=== PATIENT | male | born 1995 | race Caucasian/White ===

== ENCOUNTER 2018-05-15 23:30 | Emergency (ER) | payer MEDICAID, OTHER ==
[2018-05-16] MEDS ORDERED: ULTRAM 50 MG PO ONE ×2 (00:06→00:49)
[2018-05-16] MEDS ORDERED: Augmentin 875-125 Tablet PO ONE (00:06)
[2018-05-16] MEDS ORDERED: Augmentin 875-125 Tablet ONE (00:10)
[2018-05-16] MEDS ORDERED: ULTRAM 50 MG ONE ×2 (00:10→00:50)
--- NOTE | 2018-05-16 00:13 | ERPHSYRPT ---
- History of Present Illness Time Seen by Provider: 05/15/18 23:59 Source: patient Exam Limitations: clinical condition Patient Subjective Stated Complaint: pt states he has a toothache to rt lower jaw that started yesterday Triage Nursing Assessment: pt alert and oriented, asnwers questions approp. pt ambulatory with steady gait noted, respirations nonlabored with lungs cta. skin pink warm and dry. dental caries noted to teeth to rt lower jaw. swelling to rt lower jaw. Physician History: PATIENT COMPLAINS OF RIGHT LOWER TOOTHACHE ASSOCIATED WITH JAW SWELLING THROUGHOUT THE DAY. HE DENIES DIFFICULTY BREATHNG OR SWALLOWING, FEVER OR CHILLS Timing/Duration: gradual onset Severity: severe ENT Location: facial, dental Prearrival Treatment: no prearrival treatment (TOOK [facility] EARLIER TODAY) Associated Symptoms: facial pain/swelling, jaw pain Allergies/Adverse Reactions: ceftriaxone sodium [From Rocephin] Allergy (Mild, Verified 05/13/15 18:55) Home Medications: Cyclobenzaprine HCl 10 mg [Flexeril 10 MG] 10 mg PO Q6-8HPRN PRN 03/22/15 [History] Naproxen 500 mg [Naprosyn 500 MG] 500 mg PO [id number] PRN 03/22/15 [History] Hx Tetanus, Diphtheria Vaccination/Date Given: Yes Hx Influenza Vaccination/Date Given: No Hx Pneumococcal Vaccination/Date Given: No Immunizations Up to Date: Yes - Review of Systems Constitutional: No Symptoms Ears, Nose, & Throat: Mouth Swelling Respiratory: No Symptoms Cardiac: No Symptoms Abdominal/Gastrointestinal: No Symptoms Neurological: No Symptoms - Past Medical History Pertinent Past Medical History: Yes Neurological History: No Pertinent History ENT History: No Pertinent History Cardiac History: No Pertinent History Respiratory History: No Pertinent History Endocrine Medical History: No Pertinent History Musculoskeletal History: No Pertinent History GI Medical History: GERD History: No Pertinent History Psycho-Social History: Anxiety, Attention Deficit Disorder, Depression, Other Male Reproductive Disorders: No Pertinent History Other Medical History: PTSD - Past Surgical History Past Surgical History: Yes Neuro Surgical History: No Pertinent History Cardiac: No Pertinent History Respiratory: No Pertinent History Gastrointestinal: No Pertinent History Genitourinary: No Pertinent History Musculoskeletal: No Pertinent History Male Surgical History: No Pertinent History Other Surgical History: TONSILS - Social History Smoking Status: Former smoker How long have you smoked: 5 Exposure to second hand smoke: Yes Drug Use: none Patient Lives Alone: No Significant Family History: no pertinent family hx - Nursing Vital Signs Nursing Vital Signs: Initial Vital Signs Temperature 98.2 F 05/15/18 23:55 Pulse Rate 79 05/15/18 23:55 Respiratory Rate 16 05/15/18 23:55 Blood Pressure 114/77 05/15/18 23:55 O2 Sat by Pulse Oximetry 98 05/15/18 23:55 Pain Scale Pain Intensity 8 - Physical Exam General Appearance: no apparent distress, alert Eye Exam: bilateral eye: PERRL, EOMI Ear Exam: bilateral ear: auricle normal, canal normal Nasal Exam: normal inspection Throat Exam: pharynx normal, dental tenderness (RIGHT MANDIBLE SWELLING AT ANGLE , WIDESPREAD DENTAL CARIES), moist mucus membranes, No tonsillar exudate Neck Exam: supple Cardiovascular/Respiratory Exam: normal breath sounds, regular rate/rhythm Abdominal Exam: non-tender, soft Neurologic Exam: alert, oriented x 3, sensation nml, No motor deficits Skin Exam: normal color, warm, dry SpO2 Interpretation: normal SpO2: 98 Oxygen Delivery: Room Air Ordered Tests: Medication Summary Discontinued Medications Generic Name Dose Route Start Last Admin Trade Name Freq PRN Reason Stop Dose Admin Amoxicillin/Clavulanate Potassium 875 mg 05/16/18 00:06 Augmentin 875-125 Tablet PO 05/16/18 00:07 STAT ONE Tramadol HCl 50 mg 05/16/18 00:06 Ultram 50 Mg PO 05/16/18 00:07 STAT ONE - Progress Progress Note: 05/16/18 00:14 ADMINISTERED ULTRAM 50MG, AUGMENTIN 875MG ORALLY Counseled pt/family regarding: diagnosis, need for follow-up - Departure Time of Disposition: 00:45 Departure Disposition: Home Clinical Impression: DENTAL CARIES, ALVEOLAR ABSCESS Condition: Stable Critical Care Time: No Referrals: GABY CAMP [Primary Care Provider] - Additional Instructions: ANTIBIOTIC AUGMENTIN 875MG TWICE DAILY FOR 10 DAYS. ULTRAM 50MG EVERY 6 HOURS NEEDED. CONSULT YOUR DENTIST FOR FOLLOWUP IN 1 WEEK. Prescriptions: Amox Tr/Potass Clav. 875 mg [Augmentin 875-125 Tablet] 875 mg PO BID #20 tablet Amox Tr/Potass Clav. 875 mg [Augmentin 875-125 Tablet] 875 mg PO STAT #20 tablet Tramadol HCl 50 mg [Ultram 50 mg] 50 mg PO Q4-6HPRN PRN #12 tablet PRN Reason: Pain
[2018-05-16 00:46] VITALS: BP 112/68; PULSE 73; O2SAT 97
== END 2018-05-16 00:52 | disposition home or self-care (01) ==
LOC: ED 23:30
DX: K02.9 Dental caries, unspecified (principal); K04.7 Periapical abscess without sinus
CPT/HCPCS: 99283; A9270-GY

== ENCOUNTER 2018-05-16 22:38 | Emergency (ER) | payer OTHER ==
[2018-05-16 22:52] VITALS: BP 130/77; PULSE 86; O2SAT 97
[2018-05-16] MEDS ORDERED: Sodium Chloride 0.9% 1000 ML 1,000 ML IV STA (23:06)
[2018-05-16] MEDS ORDERED: Pepcid 20 MG PO ONE (23:06)
[2018-05-16] MEDS ORDERED: solu-MEDROL 125 MG IV ONE (23:06)
[2018-05-16] MEDS ORDERED: BENADRYL 50 MG/ML IV ONE (23:06)
--- NOTE | 2018-05-16 23:12 | ERPHSYRPT ---
- History of Present Illness Time Seen by Provider: 05/16/18 22:59 Source: patient Exam Limitations: no limitations Patient Subjective Stated Complaint: Pt arrives to ER with c/o allergic reaction to what pt believes is Ultram stating was here last night for abscessed tooth, was given Augmentin here in ER last night and sent home with Ultram. Pt has not yet filled prescription for abx but states was given take home Ultram. pt took another dose of Ultram and states believes that is the cause of his hives on his buttocks and burning in back of throat down esophagus. Denies difficulty swallowing or breathing at this time. Also mentions swelling to jaw from abscess. Triage Nursing Assessment: see above Physician History: Pt was seen here last night with dental abscess, and given Amoxicillin and Ultram. He took it today and believes he developed allergic reaction to Ultram , since he never took them, and he took Amoxicillin multiple times. He developed hives on his back, denies fever, difficulty swallowing, throat swelling, vomiting, wheezing, other complaints. He talks in sentences, no muffled voice or drooling. Timing/Duration: today Severity: mild Modifying Factors: Improves With: nothing Associated Symptoms: denies symptoms Allergies/Adverse Reactions: ceftriaxone sodium [From Rocephin] Allergy (Mild, Verified 05/13/15 18:55) tramadol [From Ultram] Allergy (Verified 05/16/18 22:52) Hives Home Medications: Cyclobenzaprine HCl 10 mg [Flexeril 10 MG] 10 mg PO Q6-8HPRN PRN 03/22/15 [History] Naproxen 500 mg [Naprosyn 500 MG] 500 mg PO [id number] PRN 03/22/15 [History] Hx Tetanus, Diphtheria Vaccination/Date Given: Yes Hx Influenza Vaccination/Date Given: No Hx Pneumococcal Vaccination/Date Given: No Immunizations Up to Date: No - Review of Systems Constitutional: No Symptoms Skin: Pruritis, Other (hives) All Other Systems: Reviewed and Negative - Past Medical History Pertinent Past Medical History: Yes Neurological History: No Pertinent History ENT History: No Pertinent History Cardiac History: No Pertinent History Respiratory History: No Pertinent History Endocrine Medical History: No Pertinent History Musculoskeletal History: No Pertinent History GI Medical History: GERD History: No Pertinent History Psycho-Social History: Anxiety, Attention Deficit Disorder, Depression, Other Male Reproductive Disorders: No Pertinent History Other Medical History: PTSD - Past Surgical History Past Surgical History: Yes Neuro Surgical History: No Pertinent History Cardiac: No Pertinent History Respiratory: No Pertinent History Gastrointestinal: No Pertinent History Genitourinary: No Pertinent History Musculoskeletal: No Pertinent History Male Surgical History: No Pertinent History Other Surgical History: TONSILS - Social History Smoking Status: Former smoker How long have you smoked: 5 Exposure to second hand smoke: No Drug Use: none Patient Lives Alone: No Significant Family History: no pertinent family hx - Nursing Vital Signs Nursing Vital Signs: Initial Vital Signs Pulse Rate 86 05/16/18 22:43 Respiratory Rate 18 05/16/18 22:43 Blood Pressure 130/77 05/16/18 22:43 O2 Sat by Pulse Oximetry 97 05/16/18 22:43 Pain Scale Pain Intensity 8 - Physical Exam General Appearance: no apparent distress Eye Exam: eyes nml inspection Ears, Nose, Throat Exam: pharynx normal, moist mucous membranes, other (right lower molars with severe caries, and slight gum swelling, no purulent discharge , or edema, no throat swelling, right mandibular angle is swollen, no skin redness, or changes.), No tonsillar exudate Neck Exam: normal inspection, non-tender, supple, No mass, No JVD, No lymphadenopathy Respiratory Exam: normal breath sounds, lungs clear, airway intact, No chest tenderness, No respiratory distress Cardiovascular Exam: regular rate/rhythm, normal heart sounds, normal peripheral pulses, No murmur Gastrointestinal/Abdomen Exam: soft, normal bowel sounds, No tenderness Back Exam: normal inspection, No CVA tenderness Extremity Exam: normal inspection Neurologic Exam: alert, oriented x 3, normal mood/affect Skin Exam: normal color, warm, dry, rash (few, scattered, small hives on lower back.), No petechiae Lymphatic Exam: No adenopathy SpO2 Interpretation: normal SpO2: 97 Oxygen Delivery: Room Air - Course Nursing assessment & vital signs reviewed: Yes Ordered Tests: Active Orders 24 hr Category Date Time Status IV Insertion STAT Care 05/16/18 23:06 Active Medication Summary Discontinued Medications Generic Name Dose Route Start Last Admin Trade Name Freq PRN Reason Stop Dose Admin Diphenhydramine HCl 25 mg 05/16/18 23:06 05/16/18 23:33 Benadryl 50 Mg/Ml IV 05/16/18 23:07 25 mg STAT ONE Administration Diphenhydramine HCl Confirm 05/16/18 23:27 Benadryl 50 Mg/Ml Administered 05/16/18 23:28 Dose 50 mg .ROUTE .STK-MED ONE Famotidine 20 mg 05/16/18 23:06 05/16/18 23:33 Pepcid 20 Mg PO 05/16/18 23:07 20 mg STAT ONE Administration Famotidine Confirm 05/16/18 23:27 Pepcid 20 Mg Administered 05/16/18 23:28 Dose 20 mg .ROUTE .STK-MED ONE Sodium Chloride 1,000 mls @ 999 mls/hr 05/16/18 23:06 05/16/18 23:33 Sodium Chloride 0.9% 1000 Ml IV 05/17/18 00:06 999 mls/hr .Q1H1M STA Administration Sodium Chloride Confirm 05/16/18 23:27 Sodium Chloride 0.9% 1000 Ml Administered 05/16/18 23:28 Dose 1,000 mls @ ud .ROUTE .STK-MED ONE Methylprednisolone Sodium Succinate 125 mg 05/16/18 23:06 05/16/18 23:33 Solu-Medrol 125 Mg IV 05/16/18 23:07 125 mg STAT ONE Administration Methylprednisolone Sodium Succinate Confirm 05/16/18 23:27 Solu-Medrol 125 Mg Administered 05/16/18 23:28 Dose 125 mg .ROUTE .STK-MED ONE - Progress Progress: improved Progress Note: 05/17/18 00:05 Pt states, improved after iv fluids, and steroid, no difficulty breathing, wheezing, pain free, and stable. I suggested to stop taking Ultram, I replaced with [place] 5/325 mg PO Q6h PRN # 10 given, also to return if continued hives, throat swelling, difficulty breathing, otherwise follow with a dentist in 2-3 days! Counseled pt/family regarding: diagnosis, need for follow-up - Departure Time of Disposition: 00:06 Departure Disposition: Home Clinical Impression: Dental abscess Allergic reaction caused by a drug Qualifiers: Encounter type: initial encounter Qualified Code(s): T78.40XA - Allergy, unspecified, initial encounter Condition: Stable Critical Care Time: No Referrals: GABY CAMP [Primary Care Provider] - Instructions: Tooth Abscess (DC), Adverse Drug Reactions, Adult (DC) Additional Instructions: Follow up with dentist! Continue Amoxicillin as directed, but stop if recurrent hives, severe swelling, or difficulty breathing, and return to ER! Prescriptions: Methylprednisolone Packet [Medrol Dosepack] 0 mg PO UD #1 packet
[2018-05-16] MEDS ORDERED: Sodium Chloride 0.9% 1000 ML 1,000 ML ONE (23:27)
[2018-05-16] MEDS ORDERED: solu-MEDROL 125 MG ONE (23:27)
[2018-05-16] MEDS ORDERED: Pepcid 20 MG ONE (23:27)
[2018-05-16] MEDS ORDERED: BENADRYL 50 MG/ML ONE (23:27)
== END 2018-05-17 00:30 | disposition home or self-care (01) ==
LOC: ED 22:38
DX: L27.0 Generalized skin eruption due to drugs and medicaments taken internally (principal); T40.4X5A Adverse effect of other synthetic narcotics, initial encounter; K04.7 Periapical abscess without sinus; Z79.899 Other long term (current) drug therapy
CPT/HCPCS: 36000; 96360; 96374; 96375; 99284; J1200; J2930; A9270-GY

== ENCOUNTER 2019-05-16 21:22 | Emergency (ER) | payer MEDICAID, OTHER ==
[2019-05-16] MEDS ORDERED: solu-MEDROL 125 MG IM ONE (21:37)
[2019-05-16 21:42] VITALS: O2SAT 94
--- NOTE | 2019-05-16 21:43 | ERPHSYRPT ---
- History of Present Illness Time Seen by Provider: 05/16/19 21:32 Source: patient Exam Limitations: no limitations Physician History: Pt started c/o rash, itching on both hands, forearms and spreading to his chest about one week ago, after pulling some weeds. He denies difficulty breathing, throat swelling, nausea, vomiting, dizziness, or other complaints, he has been using Benadryl, and rubbing alcohol to his skin. Timing/Duration: week(s) (1) Quality: burning, itchy Severity: moderate Location: hands, extremities Possible Causes: poison [place]essa Modifying Factors: Improves With: antihistamine Associated Symptoms: rash Allergies/Adverse Reactions: ceftriaxone sodium [From Rocephin] Allergy (Mild, Verified 05/13/15 18:55) tramadol [From Ultram] Allergy (Verified 05/16/18 22:52) Hives Home Medications: No Reportable Medications [No Reported Medications] 05/16/19 [History] Hx Tetanus, Diphtheria Vaccination/Date Given: Yes Hx Influenza Vaccination/Date Given: No Hx Pneumococcal Vaccination/Date Given: No - Review of Systems Constitutional: No Symptoms Eyes: No Symptoms Ears, Nose, & Throat: No Symptoms Respiratory: No Symptoms Cardiac: No Symptoms Abdominal/Gastrointestinal: No Symptoms Genitourinary Symptoms: No Symptoms Musculoskeletal: No Symptoms Skin: Pruritis, Rash Neurological: No Symptoms All Other Systems: Reviewed and Negative - Past Medical History Pertinent Past Medical History: Yes Neurological History: No Pertinent History ENT History: No Pertinent History Cardiac History: No Pertinent History Respiratory History: No Pertinent History Endocrine Medical History: No Pertinent History Musculoskeletal History: No Pertinent History GI Medical History: GERD History: No Pertinent History Psycho-Social History: Anxiety, Attention Deficit Disorder, Depression, Other Male Reproductive Disorders: No Pertinent History Other Medical History: PTSD - Past Surgical History Past Surgical History: Yes Neuro Surgical History: No Pertinent History Cardiac: No Pertinent History Respiratory: No Pertinent History Gastrointestinal: No Pertinent History Genitourinary: No Pertinent History Musculoskeletal: No Pertinent History Male Surgical History: No Pertinent History Other Surgical History: TONSILS - Social History Smoking Status: Former smoker How long have you smoked: 5 Exposure to second hand smoke: No Drug Use: none Patient Lives Alone: No Significant Family History: no pertinent family hx - Physical Exam General Appearance: no apparent distress Eye Exam: eyes nml inspection Ears, Nose, Throat Exam: normal ENT inspection, pharynx normal, moist mucous membranes Neck Exam: normal inspection, non-tender Respiratory Exam: normal breath sounds, lungs clear, airway intact, No wheezing Cardiovascular Exam: regular rate/rhythm, normal heart sounds, normal peripheral pulses, No murmur Gastrointestinal/Abdomen Exam: soft, normal bowel sounds, No tenderness Back Exam: normal inspection Extremity Exam: normal inspection Neurologic Exam: alert, oriented x 3, normal mood/affect Skin Exam: normal color, warm, dry, rash, other (diffuse, erythematous macular papular exanthems on both forearms, and similar scattered lesions on the left sode of the abdomen and chest, no hives, blisters, or other lesions.), No petechiae, No jaundice, No cyanosis, No diaphoresis Lymphatic Exam: No adenopathy SpO2 Interpretation: normal O2 Delivery: Room Air - Course Nursing assessment & vital signs reviewed: Yes Ordered Tests: Medication Summary Discontinued Medications Generic Name Dose Route Start Last Admin Trade Name Freq PRN Reason Stop Dose Admin Methylprednisolone Sodium Succinate 125 mg 05/16/19 21:37 Solu-Medrol 125 Mg IM 05/16/19 21:38 STAT ONE - Progress Progress: improved Progress Note: 05/16/19 21:42 Pt was given 125 mg Solumedrol IM, instructions given for treatment with topicals, and stay indoors, replace PO fluids, and follow up with his physician in 2-3 days. Counseled pt/family regarding: diagnosis, need for follow-up - Departure Departure Disposition: Home Clinical Impression: Poison nessa dermatitis Condition: Stable Critical Care Time: No Referrals: GABY CAMP [Primary Care Provider] - Instructions: Poison [place], Poison [place], Poison [place] (DC) Additional Instructions: Rest x 2-3 days, drink plenty of fluids, and use topicals (Calamine, Benadryl etc to rash), follow up with your physician in 2-3 days, return if severe swelling, difficulty breathing, vomiting, severe dizziness! Prescriptions: Methylprednisolone Packet [Medrol Dosepack] 4 mg PO UD #1 packet
[2019-05-16 21:46] VITALS: BP 128/81; PULSE 72
[2019-05-16] MEDS ORDERED: solu-MEDROL 125 MG ONE (21:49)
== END 2019-05-16 21:50 | disposition home or self-care (01) ==
LOC: ED 21:22
DX: L23.7 Allergic contact dermatitis due to plants, except food (principal)
CPT/HCPCS: 96372; 99283; J2930

== ENCOUNTER 2020-09-07 18:33 | Emergency (ER) | payer SELFPAY ==
[2020-09-07] MEDS ORDERED: BENADRYL 50 MG/ML IV ONE (18:49)
[2020-09-07] MEDS ORDERED: Sodium Chloride 0.9% 1000 ML 1,000 ML IV STA (18:49)
[2020-09-07] MEDS ORDERED: SUBLIMAZE 100 MCG/2 ML IV ONE ×2 (18:49→19:37)
[2020-09-07] MEDS ORDERED: Zofran 4 MG/2 ML VIAL IV ONE (18:49)
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
[2020-09-07] MEDS ORDERED: Zofran 4 MG/2 ML VIAL ONE (19:03)
[2020-09-07] MEDS ORDERED: BENADRYL 50 MG/ML ONE (19:03)
[2020-09-07] MEDS ORDERED: Sodium Chloride 0.9% 1000 ML 1,000 ML ONE (19:04)
[2020-09-07] MEDS ORDERED: SUBLIMAZE 100 MCG/2 ML ONE ×2 (19:04→19:49)
[2020-09-07 19:10] LABS: Absolute Neutrophil Ct (ANC) 6.32 (1.4-6.9); BASOPHIL % 0.1 % (0.0-0.4); Basophil (Absolute #) 0.01 (0-0.4); Eosinophil % 0.7 % (0.00-5.0); Eosinophil (Absolute #) 0.06 (0-0.5); Hematocrit 43.4 % (42-50); Hemoglobin 14.6 gm/dl (12.5-18.0); Lymphocyte (Absolute #) 1.48 (1.0-4.6); Lymphocytes % 17.6 % (24.0-44.0); Mean Cell Volume 92.7 fl (78-100); Mean Corpuscular Hemoglobin 31.2 pg (26-32); Mean Corpuscular Hgb Concent. 33.6 g/dl (32-36); Mean Platelet Volume 10.7 fl (7.5-11.0); Monocyte (Absolute #) 0.54 (0.0-1.3); Monocytes % 6.4 % (0.0-12.0); Neutrophil % 75.2 % (36.0-66.0); Platelet Count 185 K/mm3 (150-450); Red Blood Count 4.68 M/mm3 (4.1-5.6); Red Cell Distribution Width 12.7 % (11.5-14.0); White Blood Count 8.4 K/mm3 (4.0-10.5)
[2020-09-07 19:22] LABS: ALBUMIN 4.6 g/dL (3.5-5.0); ALKALINE PHOSPHATASE 49 U/L (38-126); ANION GAP 11.1 MEQ/L (5-15); BLOOD UREA NITROGEN 9 mg/dL (9-20); CHLORIDE 107 mmol/L (98-107); Calcium 9.4 mg/dL (8.4-10.2); Carbon Dioxide 25 mmol/L (22-30); EST GLOMERULAR FILTRATION RATE > 60.0 ML/MIN; Glucose 149 mg/dL (74-106); Potassium 3.4 mmol/L (3.5-5.1); SGOT/AST 21 U/L (17-59); SGPT/ALT 15 U/L (0-50); SODIUM 140 mmol/L (137-145); Total Protein 6.8 g/dL (6.3-8.2)
[2020-09-07 20:02] VITALS: O2SAT 100
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
[2020-09-07] MEDS ORDERED: Hydromorphone 1 mg/ml Injection IV ONE (20:54)
[2020-09-07] MEDS ORDERED: Hydromorphone 1 mg/ml Injection ONE (20:57)
[2020-09-07 21:04] VITALS: BP 124/70; PULSE 76
[2020-09-07 21:04] LABS: Appearance CLEAR (CLEAR); Bilirubin NEGATIVE (NEGATIVE); Blood NEGATIVE Ery/ul (0-5); Glucose NEGATIVE (NEGATIVE); Ketones TRACE (NEGATIVE); Leukocyte Esterase NEGATIVE (NEGATIVE); Mucus SLIGHT /HPF (NEGATIVE); Nitrite NEGATIVE (NEGATIVE); Protein,Urine Dip NEGATIVE (Negative); Specific Gravity 1.025 (1.005-1.025); Urobilinogen 2 mg/dL (0-1)
== END 2020-09-07 21:15 | disposition short-term general hospital (02) ==
LOC: ED 18:33
DX: S82.145A Nondisplaced bicondylar fracture of left tibia, initial encounter for closed fracture (principal); V86.56XA Driver of dirt bike or motor/cross bike injured in nontraffic accident, initial encounter
CPT/HCPCS: 36000; 36415; 73552; 73590; 80053; 81001; 83605; 85025; 96360; 96374; 96375; 96376; 99285; J1170; J1200; J2405; J3010

== ENCOUNTER 2021-04-13 17:59 | Emergency (ER) | payer OTHER ==
[2021-04-13 18:16] VITALS: O2SAT 98
[2021-04-13] MEDS ORDERED: solu-MEDROL 125 MG IM ONE (18:23)
[2021-04-13] MEDS ORDERED: solu-MEDROL 125 MG ONE (18:27)
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
[2021-04-13 18:35] VITALS: BP 138/85; PULSE 76
== END 2021-04-13 18:40 | disposition home or self-care (01) ==
LOC: ED 17:59
DX: L25.9 Unspecified contact dermatitis, unspecified cause (principal)
CPT/HCPCS: 96372; 99283; J2930

== ENCOUNTER 2021-06-22 21:42 | Emergency (ER) | payer OTHER ==
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
[2021-06-23 00:02] VITALS: BP 113/70; PULSE 56; O2SAT 96
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
== END 2021-06-23 00:06 | disposition home or self-care (01) ==
LOC: ED 21:42
DX: S00.83XA Contusion of other part of head, initial encounter (principal); S06.0X0A Concussion without loss of consciousness, initial encounter; W51.XXXA Accidental striking against or bumped into by another person, initial encounter; Y93.89 Activity, other specified; Y92.89 Other specified places as the place of occurrence of the external cause; R51.9 Headache, unspecified
CPT/HCPCS: 70450; 70486; 72125; 99283

== ENCOUNTER 2021-11-28 16:59 | Emergency (ER) | payer OTHER ==
[2021-11-28] MEDS ORDERED: Zithromax 250 MG TABLET PO ONE (18:05)
[2021-11-28] MEDS ORDERED: GARAMYCIN INJ IM ONE (18:05)
[2021-11-28] MEDS ORDERED: Vibramycin 100 MG PO ONE (18:06)
--- NOTE | 2021-11-28 18:24 | ERPHSYRPT ---
- History of Present Illness Time Seen by Provider: 11/28/21 17:16 Source: patient Exam Limitations: no limitations Patient Subjective Stated Complaint: Pt states that he had been with someone that had tested positive for chlamydia and he has been having pain after masterb ating and after urinating Triage Nursing Assessment: Pt was brought to the ER by himself, man parikh, denies pain at this time, does not have a sexual partner at this time, last time was a month ago with the positive chlamydia test, states that he has discharge coming from his penis, pain that continues throughout the day after masterbation Physician History: 26 years old with history of STDs in the past, was involved in unprotected sex almost a month ago and partner tested positive for chlamydia and now he is having some clear to yellow penile discharge and also complaining of testicular pain after masturbating. Denies any testicular swelling. Timing/Duration: week(s), gradual onset, worse Activites at Onset: other Quality: burning Pain Radiation: urethral, scrotal Severity of Pain-Max: moderate Severity of Pain-Current: none Modifying Factors: Improves With: other Associated Symptoms: denies symptoms Sexual intercourse history: less than 2 months ago Allergies/Adverse Reactions: ceftriaxone sodium [From Rocephin] Allergy (Mild, Verified 11/28/21 17:42) tramadol [From Ultram] Allergy (Verified 11/28/21 17:42) Hives Hx Tetanus, Diphtheria Vaccination/Date Given: Yes Hx Influenza Vaccination/Date Given: No Hx Pneumococcal Vaccination/Date Given: No Travel Risk - International Travel Have you traveled outside of the country in past 3 weeks: No - Coronavirus Screening Are you exhibiting any of the following symptoms?: No Close contact with a COVID-19 positive Pt in past 14-21 Days: No - Vaccine Status Have you recieved a Covid-19 vaccination: No - Past Medical History Pertinent Past Medical History: Yes Neurological History: Migraines, Other ENT History: No Pertinent History Cardiac History: No Pertinent History Respiratory History: No Pertinent History Endocrine Medical History: No Pertinent History Musculoskeletal History: No Pertinent History GI Medical History: GERD History: No Pertinent History Psycho-Social History: Anxiety, Attention Deficit Disorder, Depression, Other Male Reproductive Disorders: No Pertinent History Other Medical History: hx of concussion, ADHD, PTSD - Past Surgical History Past Surgical History: Yes Neuro Surgical History: No Pertinent History Cardiac: No Pertinent History Respiratory: No Pertinent History Gastrointestinal: No Pertinent History Genitourinary: No Pertinent History Musculoskeletal: Orthopedic Surgery Male Surgical History: No Pertinent History Other Surgical History: TONSILS, knee surgery X 2, left leg ortho surgery - Social History Smoking Status: Current every day smoker How long have you smoked: years Exposure to second hand smoke: No Drug Use: none Patient Lives Alone: No Significant Family History: no pertinent family hx - Review of Systems Constitutional: No Symptoms Eyes: No Symptoms Ears, Nose, & Throat: No Symptoms Respiratory: No Symptoms Cardiac: No Symptoms Abdominal/Gastrointestinal: No Symptoms Genitourinary Symptoms: Penile Discharge Musculoskeletal: No Symptoms Skin: No Symptoms Neurological: No Symptoms Psychological: No Symptoms Endocrine: No Symptoms Hematologic/Lymphatic: No Symptoms - Nursing Vital Signs Nursing Vital Signs: Initial Vital Signs Temperature 98.6 F 11/28/21 17:33 Pulse Rate 71 11/28/21 17:33 Blood Pressure 130/88 11/28/21 17:33 O2 Sat by Pulse Oximetry 99 11/28/21 17:33 Pain Scale Pain Intensity 0 - Physical Exam General Appearance: no apparent distress Eye Exam: PERRL/EOMI Neck Exam: normal inspection, full range of motion Respiratory Exam: normal breath sounds, lungs clear Cardiovascular Exam: regular rate/rhythm, normal heart sounds Gastrointestinal/Abdomen Exam: soft, normal bowel sounds, No tenderness Rectal Exam: deferred Back Exam: normal inspection, normal range of motion Extremity Exam: normal inspection, normal range of motion Neurologic Exam: alert, oriented x 3, cooperative Skin Exam: normal color SpO2 Interpretation: normal SpO2: 99 O2 Delivery: Room Air Ordered Tests: Medication Summary Discontinued Medications Generic Name Dose Route Start Last Admin Trade Name Adrian PRN Reason Stop Dose Admin Azithromycin 2,000 mg 11/28/21 18:05 Azithromycin 250 Mg Tablet PO 11/28/21 18:06 STAT ONE Doxycycline Hyclate 100 mg 11/28/21 18:06 Doxycycline Hyclate 100 Mg Tablet PO 11/28/21 18:07 STAT ONE Gentamicin Sulfate 240 mg 11/28/21 18:05 Gentamicin Sulfate 80 Mg/2 Ml Vial IM 11/28/21 18:06 STAT ONE - Progress Progress: unchanged Progress Note: 11/28/21 patient is allergic to Rocephin having anaphylaxis in the past. As per new CDC recommendation given gentamicin to 40 mg IM, Zithromax 2 g p.o. and started on doxycycline. Patient is counseled Counseled pt/family regarding: diagnosis, need for follow-up - Departure Departure Disposition: Home Clinical Impression: STD exposure Condition: Stable Critical Care Time: No Referrals: GABY CAMP [Primary Care Provider] - Follow Up with PCP/3 days Instructions: Chlamydia (DC), Gonorrhea (DC) Additional Instructions: Follow safe sex practices. No sexual activity until your symptoms are improved completely. Follow-up with primary care for reevaluation. Return to ER for any worsening discharge, pain etc. Prescriptions: Doxycycline Hyclate 100 mg [Vibramycin 100 MG] 100 mg PO BID #14 tab
[2021-11-28 18:48] LABS: Appearance CLEAR (CLEAR); Bilirubin NEGATIVE (NEGATIVE); Blood NEGATIVE Ery/ul (0-5); Glucose NEGATIVE (NEGATIVE); Ketones NEGATIVE (NEGATIVE); Leukocyte Esterase NEGATIVE (NEGATIVE); Nitrite NEGATIVE (NEGATIVE); Protein,Urine Dip NEGATIVE (Negative); Specific Gravity 1.024 (1.005-1.025); Urobilinogen NEGATIVE mg/dL (0-1)
[2021-11-28] MEDS ORDERED: Vibramycin 100 MG ONE (18:57)
[2021-11-28] MEDS ORDERED: Zithromax 250 MG TABLET ONE (18:57)
[2021-11-28] MEDS ORDERED: GARAMYCIN INJ ONE ×2 (19:16→19:23)
[2021-11-28 19:39] VITALS: BP 131/82; PULSE 72; O2SAT 97
== END 2021-11-28 19:44 | disposition home or self-care (01) ==
LOC: ED 16:59
DX: Z20.2 Contact with and (suspected) exposure to infections with a predominantly sexual mode of transmission (principal); R36.9 Urethral discharge, unspecified; N50.819 Testicular pain, unspecified; Z72.0 Tobacco use
CPT/HCPCS: 81001; 96372; 99284; J1580; A9270-GY

== ENCOUNTER 2022-01-21 21:22 | Emergency (ER) | payer OTHER ==
--- NOTE | 2022-01-21 21:27 | ERPHSYRPT ---
- History of Present Illness Time Seen by Provider: 01/21/22 21:26 Source: patient Exam Limitations: no limitations Physician History: This is a right-handed 26-year-old male who was at work this evening and bent over to attempt to lift heavy weight approximately 40 pounds but when he went to reach down and pull up he felt sharp shooting pains in his right chest into his right shoulder and right lateral neck. Since then he has had aching in that area but has full range of motion. He did not fall onto his shoulder. Patient states that he can take [place] or hydrocodone type medications without any problems. Occurred: just prior to arrival Method of Injury: other (Lifting) Quality: intermittent, aching Severity of Pain-Max: moderate Severity of Pain-Current: mild (To moderate) Extremities Pain Location: shoulder: right Modifying Factors: Improves With: movement Associated Symptoms: none Allergies/Adverse Reactions: ceftriaxone sodium [From Rocephin] Allergy (Mild, Verified 01/21/22 21:31) tramadol [From Ultram] Allergy (Verified 01/21/22 21:31) Hives Hx Tetanus, Diphtheria Vaccination/Date Given: Yes Hx Influenza Vaccination/Date Given: No Hx Pneumococcal Vaccination/Date Given: No Travel Risk - International Travel Have you traveled outside of the country in past 3 weeks: No - Coronavirus Screening Are you exhibiting any of the following symptoms?: No Close contact with a COVID-19 positive Pt in past 14-21 Days: No - Vaccine Status Have you recieved a Covid-19 vaccination: No - Review of Systems Constitutional: No Symptoms Eyes: No Symptoms Ears, Nose, & Throat: No Symptoms Respiratory: No Symptoms Cardiac: No Symptoms Abdominal/Gastrointestinal: No Symptoms Genitourinary Symptoms: No Symptoms Musculoskeletal: Neck Pain (Right lateral), Other (Right shoulder right chest wall) Neurological: No Symptoms Psychological: No Symptoms Endocrine: No Symptoms Hematologic/Lymphatic: No Symptoms Immunological/Allergic: No Symptoms All Other Systems: Reviewed and Negative - Past Medical History Pertinent Past Medical History: Yes Neurological History: Migraines, Other ENT History: No Pertinent History Cardiac History: No Pertinent History Respiratory History: No Pertinent History Endocrine Medical History: No Pertinent History Musculoskeletal History: No Pertinent History GI Medical History: GERD History: No Pertinent History Psycho-Social History: Anxiety, Attention Deficit Disorder, Depression, Other Male Reproductive Disorders: No Pertinent History Other Medical History: hx of concussion, ADHD, PTSD - Past Surgical History Past Surgical History: Yes Neuro Surgical History: No Pertinent History Cardiac: No Pertinent History Respiratory: No Pertinent History Gastrointestinal: No Pertinent History Genitourinary: No Pertinent History Musculoskeletal: Orthopedic Surgery Male Surgical History: No Pertinent History Other Surgical History: TONSILS, knee surgery X 2, left leg ortho surgery - Social History Smoking Status: Current every day smoker How long have you smoked: years Exposure to second hand smoke: No Drug Use: none Patient Lives Alone: No Significant Family History: no pertinent family hx - Physical Exam General Appearance: no apparent distress, alert, anxiety Eyes, Ears, Nose, Throat Exam: normal ENT inspection, moist mucous membranes Neck Exam: normal inspection, non-tender, supple, full range of motion Cardiovascular/Respiratory Exam: chest non-tender (Right upper lateral), normal breath sounds, no respiratory distress, No rib tenderness, No subcutaneous emphysema Abdominal Exam: non-tender Back Exam: normal inspection, normal range of motion, No CVA tenderness, No vertebral tenderness Shoulder Exam: normal inspection, no evidence of injury, normal ROM, pain (Mild with movement) Elbow/Forearm Exam: normal inspection, non-tender, no evidence of injury, normal ROM Wrist Exam: normal inspection, non-tender, no evidence of injury, normal ROM Hand Exam: normal inspection, non-tender, no evidence of injury, normal ROM Neuro/Tendon Exam: normal sensation, normal motor functions, normal tendon functions, responds to pain, no evidence tendon injury Mental Status Exam: alert, oriented x 3, cooperative Skin Exam: normal color, warm, dry SpO2 Interpretation: normal O2 Delivery: Room Air - Course Nursing assessment & vital signs reviewed: Yes Ordered Tests: Active Orders 24 hr Category Date Time Status UA W/RFX UR CULTURE Stat Lab 01/21/22 21:45 Ordered Medication Summary Discontinued Medications Generic Name Dose Route Start Last Admin Trade Name Freq PRN Reason Stop Dose Admin Hydrocodone Bitart/Acetaminophen 2 tab 01/21/22 21:44 Hydrocodone/Apap 5/325 Mg Tablet PO 01/21/22 21:45 SENT HOME W/ PATIENT ONE Prednisone 20 mg 01/21/22 21:44 Prednisone 20 Mg Tablet PO 01/21/22 21:45 STAT ONE - Progress Progress: pain not gone completely Progress Note: 01/21/22 21:49 Patient suffered no acute fall or trauma to the right shoulder. I am not concerned of any bony fracture or dislocation. Counseled pt/family regarding: diagnosis, need for follow-up - Departure Departure Disposition: Home Clinical Impression: Muscle strain Condition: Stable Critical Care Time: No Referrals: GABY CAMP [Primary Care Provider] - Follow up/PCP as directed Additional Instructions: Ice pack to tender areas 3 times a day for the next 24 hours. After the first 24 hours, alternate ice and heat 4 times a day. Take medication as prescribed. Follow-up with your primary care physician for further management. Forms: Work/School Release Form
[2022-01-21] MEDS ORDERED: DELTASONE 20 MG PO ONE (21:44)
[2022-01-21] MEDS ORDERED: NORCO 5/325 MG PO ONE (21:44)
[2022-01-21] MEDS ORDERED: DELTASONE 20 MG ONE (21:49)
[2022-01-21] MEDS ORDERED: NORCO 5/325 MG ONE (21:49)
[2022-01-21 22:10] VITALS: BP 140/86; PULSE 80; O2SAT 100
[2022-01-21 22:23] LABS: Amphetamine,Urine NEGATIVE (NEGATIVE); Barbiturate,Urine NEGATIVE (NEGATIVE); Benzodiazepine,Urine NEGATIVE (NEGATIVE); Cocaine,Urine NEGATIVE (NEGATIVE); Methadone,Urine NEGATIVE (NEGATIVE); Opiate,Urine NEGATIVE (NEGATIVE); PCP,Urine NEGATIVE (NEGATIVE); THC,Urine NEGATIVE (NEGATIVE)
== END 2022-01-21 22:11 | disposition home or self-care (01) ==
LOC: ED 21:22
DX: S46.911A Strain of unspecified muscle, fascia and tendon at shoulder and upper arm level, right arm, initial encounter (principal); S16.1XXA Strain of muscle, fascia and tendon at neck level, initial encounter; S29.011A Strain of muscle and tendon of front wall of thorax, initial encounter; X50.0XXA Overexertion from strenuous movement or load, initial encounter; Y99.0 Civilian activity done for income or pay; K21.9 Gastro-esophageal reflux disease without esophagitis; Z72.0 Tobacco use
CPT/HCPCS: 80307; 99283; A9270-GY

== ENCOUNTER 2022-01-28 15:35 | Emergency (ER) | payer OTHER ==
--- NOTE | 2022-01-28 15:39 | ERPHSYRPT ---
- History of Present Illness Time Seen by Provider: 01/28/22 15:38 Historian: patient Exam Limitations: no limitations Physician History: This is a 26-year-old white male patient of Dr. Silverman who has a history of migraine headaches, panic disorder, ADHD, depression, PTSD and gastroesophageal reflux disease who presents to the emergency department with nonspecific nausea. Patient is not on any medications to control his PTSD or panic attacks. Patient was seen at another emergency room approximately 3 days ago and was given a prescription of Zofran which she did not take despite having intermittent nausea. He presents again to this emergency room with similar complaints. He has no headache. He has no chest pain. He has no shortness of breath. He has no abdominal pain. The initial day he had vomiting episodes but he has not had no vomiting episodes since that first day. He has had no diarrhea. He has not had any known exposure to individuals with flulike symptoms. Timing/Duration: day(s) (3) Activities at Onset: none Abdominal Pain Onset Location: other (No abdominal pain) Pain Radiation: no radiation Severity of Pain-Max: none Severity of Pain-Current: none Modifying Factors: Improves With: vomiting (First day only) Associated Symptoms: nausea Previous symptoms: same symptoms as today, recently seen, recently treated Allergies/Adverse Reactions: ceftriaxone sodium [From Rocephin] Allergy (Mild, Verified 01/28/22 15:50) tramadol [From Ultram] Allergy (Verified 01/28/22 15:50) Hives Hx Tetanus, Diphtheria Vaccination/Date Given: Yes Hx Influenza Vaccination/Date Given: No Hx Pneumococcal Vaccination/Date Given: No Travel Risk - International Travel Have you traveled outside of the country in past 3 weeks: No - Coronavirus Screening Are you exhibiting any of the following symptoms?: No Close contact with a COVID-19 positive Pt in past 14-21 Days: No - Vaccine Status Have you recieved a Covid-19 vaccination: No - Review of Systems Constitutional: No Symptoms Eyes: No Symptoms Ears, Nose, & Throat: No Symptoms Respiratory: No Symptoms Cardiac: No Symptoms Abdominal/Gastrointestinal: Nausea, No Abdominal Pain, No Vomiting, No Diarrhea, No Constipation Genitourinary Symptoms: No Symptoms Musculoskeletal: No Symptoms Skin: No Symptoms Neurological: No Symptoms Psychological: No Symptoms Endocrine: No Symptoms Hematologic/Lymphatic: No Symptoms Immunological/Allergic: No Symptoms All Other Systems: Reviewed and Negative - Past Medical History Pertinent Past Medical History: Yes Neurological History: Migraines, Other ENT History: No Pertinent History Cardiac History: No Pertinent History Respiratory History: No Pertinent History Endocrine Medical History: No Pertinent History Musculoskeletal History: No Pertinent History GI Medical History: GERD History: No Pertinent History Psycho-Social History: Anxiety, Attention Deficit Disorder, Depression, Other Male Reproductive Disorders: No Pertinent History Other Medical History: hx of concussion, ADHD, PTSD - Past Surgical History Past Surgical History: Yes Neuro Surgical History: No Pertinent History Cardiac: No Pertinent History Respiratory: No Pertinent History Gastrointestinal: No Pertinent History Genitourinary: No Pertinent History Musculoskeletal: Orthopedic Surgery Male Surgical History: No Pertinent History Other Surgical History: TONSILS, knee surgery X 2, left leg ortho surgery - Social History Smoking Status: Current every day smoker How long have you smoked: years Exposure to second hand smoke: No Drug Use: none Patient Lives Alone: No Significant Family History: no pertinent family hx - Nursing Vital Signs Nursing Vital Signs: Initial Vital Signs Temperature 98.0 F 01/28/22 15:42 Pulse Rate 73 01/28/22 15:42 Blood Pressure 155/77 01/28/22 15:42 O2 Sat by Pulse Oximetry 97 01/28/22 15:42 Pain Scale Pain Intensity 2 - Physical Exam General Appearance: no apparent distress, alert, anxiety Eye Exam: PERRL/EOMI, eyes nml inspection Ears, Nose, Throat Exam: normal ENT inspection, moist mucous membranes Neck Exam: normal inspection, non-tender, supple, full range of motion Respiratory Exam: airway intact, No chest tenderness, No respiratory distress Gastrointestinal/Abdomen Exam: No tenderness Rectal Exam: not done Back Exam: normal inspection, normal range of motion, No CVA tenderness, No vertebral tenderness Extremity Exam: normal inspection, normal range of motion, pelvis stable Neurologic Exam: alert, oriented x 3, cooperative, 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, normal mood/affect, nml cerebellar function, nml station & gait, sensation nml Skin Exam: normal color, warm, dry Lymphatic Exam: No adenopathy SpO2 Interpretation: normal O2 Delivery: Room Air - Course Nursing assessment & vital signs reviewed: Yes Ordered Tests: Active Orders 24 hr Category Date Time Status AMYLASE Stat Lab 01/28/22 16:45 Completed CBC W DIFF Stat Lab 01/28/22 16:45 Completed CMP Stat Lab 01/28/22 16:45 Completed COVID AG-BINAX NOW RAPID TEST Stat Lab 01/28/22 16:45 Completed INFLUENZA A+B DOROTHY Stat Lab 01/28/22 16:45 Completed LIPASE Stat Lab 01/28/22 16:45 Completed [place] Screen Stat Lab 01/28/22 16:45 Completed UA W/RFX UR CULTURE Stat Lab 01/28/22 16:55 Completed Lab/Rad Data: Laboratory Result Diagrams 01/28/22 16:45 01/28/22 16:45 Laboratory Results 01/28/22 01/28/22 01/28/22 Range/Units 16:55 16:45 16:45 WBC (4.0-10.5) K/mm3 RBC (4.1-5.6) M/mm3 Hgb (12.5-18.0) gm/dl Hct (42-50) % MCV (78-100) fl MCH (26-32) pg MCHC (32-36) g/dl RDW (11.5-14.0) % Plt Count (150-450) K/mm3 MPV (7.5-11.0) fl Gran % (36.0-66.0) % Eos # (Auto) (0-0.5) Absolute Lymphs (auto) (1.0-4.6) Absolute Monos (auto) (0.0-1.3) Lymphocytes % (24.0-44.0) % Monocytes % (0.0-12.0) % Eosinophils % (0.00-5.0) % Basophils % (0.0-0.4) % Absolute Granulocytes (1.4-6.9) Basophils # (0-0.4) Sodium (137-145) mmol/L Potassium (3.5-5.1) mmol/L Chloride (98-107) mmol/L Carbon Dioxide (22-30) mmol/L Anion Gap (5-15) MEQ/L BUN (9-20) mg/dL Creatinine (0.66-1.25) mg/dL Estimated GFR ML/MIN Glucose (74-106) mg/dL Calcium (8.4-10.2) mg/dL Total Bilirubin (0.2-1.3) mg/dL AST (17-59) U/L ALT (0-50) U/L Alkaline Phosphatase (38-126) U/L Serum Total Protein (6.3-8.2) g/dL Albumin (3.5-5.0) g/dL Amylase (30-110) U/L Lipase (23-300) U/L Urine Color YELLOW (YELLOW) Urine Appearance CLEAR (CLEAR) Urine pH 8.0 (5-6) Ur Specific [place] 1.020 (1.005-1.025) Urine Protein NEGATIVE (Negative) Urine Ketones TRACE (NEGATIVE) Urine Blood NEGATIVE (0-5) James/ul Urine Nitrite NEGATIVE (NEGATIVE) Urine Bilirubin NEGATIVE (NEGATIVE) Urine Urobilinogen 2 (0-1) mg/dL Ur Leukocyte Esterase NEGATIVE (NEGATIVE) Urine WBC (Auto) 0-2 (0-5) /HPF Urine RBC (Auto) NONE (0-2) /HPF Urine Mucus (Auto) SLIGHT (NEGATIVE) /HPF Urine Culture Reflexed NO (NO) Urine Glucose NEGATIVE (NEGATIVE) mg/dL Monoscreen NEGATIVE (Negative) Influenza Type A Ag NEGATIVE (NEGATIVE) Influenza Type B Ag NEGATIVE (NEGATIVE) SARS-CoV-2 Ag (Rapid) (NEGATIVE) 01/28/22 01/28/22 01/28/22 Range/Units 16:45 16:45 16:45 WBC 8.7 (4.0-10.5) K/mm3 RBC 5.26 (4.1-5.6) M/mm3 Hgb 16.3 (12.5-18.0) gm/dl Hct 47.0 (42-50) % MCV 89.4 (78-100) fl MCH 31.0 (26-32) pg MCHC 34.7 (32-36) g/dl RDW 12.4 (11.5-14.0) % Plt Count 227 (150-450) K/mm3 MPV 10.0 (7.5-11.0) fl Gran % 79.2 H (36.0-66.0) % Eos # (Auto) 0.04 (0-0.5) Absolute Lymphs (auto) 1.21 (1.0-4.6) Absolute Monos (auto) 0.54 (0.0-1.3) Lymphocytes % 14.0 L (24.0-44.0) % Monocytes % 6.2 (0.0-12.0) % Eosinophils % 0.5 (0.00-5.0) % Basophils % 0.1 (0.0-0.4) % Absolute Granulocytes 6.86 (1.4-6.9) Basophils # 0.01 (0-0.4) Sodium 143 (137-145) mmol/L Potassium 4.1 (3.5-5.1) mmol/L Chloride 106 (98-107) mmol/L Carbon Dioxide 28 (22-30) mmol/L Anion Gap 13.0 (5-15) MEQ/L BUN 8 L (9-20) mg/dL Creatinine 0.90 (0.66-1.25) mg/dL Estimated GFR > 60.0 ML/MIN Glucose 98 (74-106) mg/dL Calcium 9.3 (8.4-10.2) mg/dL Total Bilirubin 1.50 H (0.2-1.3) mg/dL AST 16 L (17-59) U/L ALT 10 (0-50) U/L Alkaline Phosphatase 59 (38-126) U/L Serum Total Protein 7.7 (6.3-8.2) g/dL Albumin 4.9 (3.5-5.0) g/dL Amylase 63 (30-110) U/L Lipase 29 (23-300) U/L Urine Color (YELLOW) Urine Appearance (CLEAR) Urine pH (5-6) Ur Specific [place] (1.005-1.025) Urine Protein (Negative) Urine Ketones (NEGATIVE) Urine Blood (0-5) James/ul Urine Nitrite (NEGATIVE) Urine Bilirubin (NEGATIVE) Urine Urobilinogen (0-1) mg/dL Ur Leukocyte Esterase (NEGATIVE) Urine WBC (Auto) (0-5) /HPF Urine RBC (Auto) (0-2) /HPF Urine Mucus (Auto) (NEGATIVE) /HPF Urine Culture Reflexed (NO) Urine Glucose (NEGATIVE) mg/dL Monoscreen (Negative) Influenza Type A Ag (NEGATIVE) Influenza Type B Ag (NEGATIVE) SARS-CoV-2 Ag (Rapid) NEGATIVE (NEGATIVE) - Departure Departure Disposition: Home Clinical Impression: Nausea Condition: Stable Critical Care Time: No Referrals: GABY SILVERMAN [Primary Care Provider] - Follow up/PCP as directed Additional Instructions: Back off your diet to clear liquids. Do not advance from clear liquids until you are tolerating them well without nausea. Call your primary care doctor for evaluation and management of both the nausea and panic disorder. Take your medication as prescribed. Prescriptions: Ondansetron ODT 4 MG [Zofran Odt 4 mg] 4 mg PO Q6H PRN PRN #10 tablet PRN Reason: Vomiting
[2022-01-28 15:50] VITALS: BP 155/77; PULSE 73; O2SAT 97
[2022-01-28 16:56] LABS: Absolute Neutrophil Ct (ANC) 6.86 (1.4-6.9); Basophil (Absolute #) 0.01 (0-0.4); Eosinophil % 0.5 % (0.00-5.0); Eosinophil (Absolute #) 0.04 (0-0.5); Hemoglobin 16.3 gm/dl (12.5-18.0); Lymphocyte (Absolute #) 1.21 (1.0-4.6); Mean Cell Volume 89.4 fl (78-100); Mean Corpuscular Hgb Concent. 34.7 g/dl (32-36); Monocyte (Absolute #) 0.54 (0.0-1.3); Monocytes % 6.2 % (0.0-12.0); Neutrophil % 79.2 % (36.0-66.0); Platelet Count 227 K/mm3 (150-450); Red Blood Count 5.26 M/mm3 (4.1-5.6); Red Cell Distribution Width 12.4 % (11.5-14.0); White Blood Count 8.7 K/mm3 (4.0-10.5)
[2022-01-28 17:02] LABS: Appearance CLEAR (CLEAR); Bilirubin NEGATIVE (NEGATIVE); Blood NEGATIVE Ery/ul (0-5); Glucose NEGATIVE (NEGATIVE); Ketones TRACE (NEGATIVE); Leukocyte Esterase NEGATIVE (NEGATIVE); Mucus SLIGHT /HPF (NEGATIVE); Nitrite NEGATIVE (NEGATIVE); Protein,Urine Dip NEGATIVE (Negative); Urobilinogen 2 mg/dL (0-1); WBC 0-2 /HPF (0-5)
[2022-01-28 17:07] LABS: ALBUMIN 4.9 g/dL (3.5-5.0); ALKALINE PHOSPHATASE 59 U/L (38-126); AMYLASE 63 U/L (30-110); BLOOD UREA NITROGEN 8 mg/dL (9-20); CHLORIDE 106 mmol/L (98-107); Calcium 9.3 mg/dL (8.4-10.2); Carbon Dioxide 28 mmol/L (22-30); EST GLOMERULAR FILTRATION RATE > 60.0 ML/MIN; Glucose 98 mg/dL (74-106); LIPASE 29 U/L (23-300); Potassium 4.1 mmol/L (3.5-5.1); SGOT/AST 16 U/L (17-59); SGPT/ALT 10 U/L (0-50); SODIUM 143 mmol/L (137-145); Total Protein 7.7 g/dL (6.3-8.2)
[2022-01-28 17:19] LABS: COVID AG -BINAX NOW RAPID TEST NEGATIVE (NEGATIVE); INFLUENZA A NEGATIVE (NEGATIVE); INFLUENZA B NEGATIVE (NEGATIVE)
== END 2022-01-28 17:48 | disposition home or self-care (01) ==
LOC: ED 15:35
DX: R11.0 Nausea (principal); K21.9 Gastro-esophageal reflux disease without esophagitis; F41.0 Panic disorder [episodic paroxysmal anxiety]; F32.A Depression, unspecified; F43.10 Post-traumatic stress disorder, unspecified; Z72.0 Tobacco use
CPT/HCPCS: 36415; 80053; 81001; 82150; 83690; 85025; 86308; 87400; 99000; 99283

== ENCOUNTER 2022-06-05 06:05 | Day surgery (SDC) | payer OTHER ==
[2022-06-05] MEDS ORDERED: Lactated Ringers 1,000 ML IV ONE (06:43)
[2022-06-05] MEDS ORDERED: Lactated Ringers 1,000 ML IV SCH (07:00)
[2022-06-05] MEDS ORDERED: DIPRIVAN 200 MG/20 ML IV ONE (07:52)
[2022-06-05] MEDS ORDERED: Xylocaine-Mpf 2% 5 Ml Vial ONE (07:52)
[2022-06-05 09:02] VITALS: BP 113/75; O2SAT 99
[2022-06-05 09:04] VITALS: PULSE 57
--- NOTE | 2022-06-05 09:24 | OP ---
SURGERY DATE/TIME: 06/05/2022 0757 PREOPERATIVE DIAGNOSIS: Epigastric pain. POSTOPERATIVE DIAGNOSIS: Mild gastritis. PROCEDURE: Esophagogastroduodenoscopy with cold forceps biopsy of the gastric antrum. SURGEON: Dr. Wellington Silverman. ANESTHESIA: Medications were given by the anesthesia department. BRIEF HISTORY: The patient is a 27-year-old male patient presenting now for complaints of epigastric pain. The patient is currently on omeprazole twice a day when he can remember to take it. He denies the use of any nonsteroidal. The patient was felt the need to have endoscopic evaluation. He was appraised of the risks of the procedure including the risk of perforation, phlebitis, untoward reaction to medication, bleeding and missed lesions. The patient verbalized his understanding and desired to have the procedure performed. DESCRIPTION OF PROCEDURE: The patient was given the medications by the anesthesia department. He had continuous pulse oximetry, ECG monitoring, intermittent blood pressure monitoring during the examination. He was placed in the left lateral decubitus position. A bite block was placed and the flexible Olympus gastroscope was used to intubate the oropharynx. A view of the larynx was obtained and was normal. The scope was easily introduced in the esophagus which appeared to be normal throughout its length. The stomach was entered where normal gastric rugal folds were seen and these distended nicely with insufflation of air. The scope was passed along the greater curvature of the stomach to the antrum. The pylorus was encountered and intubated. Duodenum inspected and found to be normal. The scope is withdrawn towards the stomach again. A retroflex view was obtained of the lesser curvature, fundus and cardia regions of the stomach and these appeared to be normal as well. The scope was then redirected towards the gastric antrum where biopsies using cold forceps biopsy technique were obtained to rule out the presence of Helicobacter pylori-type organisms. The scope was then removed from the patient who tolerated the procedure well and was sent back to OR recovery in good condition.
== END 2022-06-05 09:08 | disposition home or self-care (01) ==
LOC: SDC 06:05
PROVIDERS: ATTEND Family Medicine
DX: K29.70 Gastritis, unspecified, without bleeding (principal); R10.13 Epigastric pain
CPT/HCPCS: J2704